=== PATIENT | male | born 2000 | race Caucasian/White ===

== ENCOUNTER 2019-01-01 13:06 | Emergency (ER) | payer OTHER ==
[2019-01-01] MEDS ORDERED: NS 1,000 ML IV ONE (13:26)
[2019-01-01] MEDS ORDERED: ONDANSETRON 4 MG/2 ML VIAL IVP ONE (13:26)
[2019-01-01] MEDS ORDERED: KETOROLAC 30 MG/1 ML SDV IVP ONE ×2 (13:26→16:42)
--- NOTE | 2019-01-01 13:29 | EDPHY ---
HPI/HX/ROS/PE/MDM Narrative: CHIEF COMPLAINT: Vomiting, diarrhea HPI: The patient is a 18-year-old male with no significant past medical history. He returned from [place] in [facility] approximately 5 days ago. 1-2 days after returning, he developed vomiting and diarrhea as well as diffuse abdominal cramping. He does describe some blood in his stool. He denies fever or chills. He denies dysuria. REVIEW OF SYSTEMS: Aside from elements discussed in the HPI, a comprehensive 10-point review of systems was reviewed and is negative. PMH: No significant past medical history. No history of abdominal surgery. SOCIAL HISTORY: Single. Student. PHYSICAL EXAM: General:Patient is alert, in no acute distress. ENT:Eyes are normal to inspection. ENT inspection normal. Neck: Normal inspection. Full range of motion. Respiratory:No respiratory distress. Breath sounds normal bilaterally. Cardiovascular: Regular rate and rhythm. Strong peripheral pulses. Normal cap refill. Abdomen:The abdomen is nontender to palpation. There are no peritoneal signs. There are normal bowel sounds. Back: Normal to inspection. No tenderness to palpation. Skin: Normal color. No rash. Warm and dry. Extremities: Normal appearance. Full range of motion. Neuro: Oriented x3. Normal motor function. Normal sensory function. ED Course: 18:[address] Duke, radiologist. Normal appendix. Evidence of colitis. Plan to administer 1g PO azithromycin. 18:32 Patient tolerated PO challenge. Plan to discharge home in good condition. Follow up and return precautions discussed. He is comfortable with this plan. MDM: This patient presents with signs and symptoms of gastroenteritis, likely caused by food-borne illness from recent trip to [place]. Given his finding of pain in the RLQ, a CT was performed to rule out appendicitis and this is thankfully normal. The patient has been unable to provide a stool sample despite his multiple hour long ED stay. This in itself is reassuring, but does not help us identify the pathogen. I have chosen to treat the patient empirically with 1 g azithromycin. At time of discharge, the patient is tolerating food and fluids by mouth without difficulty and he appears well hydrated. - Data Points Imaging Results: Imaging Impressions Abdomen CT 01/01/19 17:33 Impression: 1. Mild colitis involving the cecum and ascending colon, likely infectious. No perforation, abscess or obstruction. 2. Normal appendix. Findings discussed with Emergency Department physician, Serafin Infante MD at 01/01/2019 18:11. Imaging: Discussed imaging studies w/ windmill mechanic Radiologist Laboratory Results: Laboratory Results 01/01/19 13:29 01/01/19 13:29 01/01/19 01/01/19 13:29 13:29 WBC 11.72 10^3/uL H 10^3/uL (3.80-9.50) RBC 5.53 10^6/uL 10^6/uL (4.40-6.38) Hgb 17.1 g/dL g/dL (13.7-17.5) Hct 48.0 % % (40.0-51.0) MCV 86.8 fL fL (81.5-99.8) MCH 30.9 pg pg (27.9-34.1) MCHC 35.6 g/dL g/dL (32.4-36.7) RDW 11.9 % % (11.5-15.2) Plt Count 366 10^3/uL 10^3/uL (150-400) MPV 9.1 fL fL (8.7-11.7) Neut % (Auto) 65.1 % % (39.3-74.2) Lymph % (Auto) 24.1 % % (15.0-45.0) [place] % (Auto) 9.7 % % (4.5-13.0) Eos % (Auto) 0.3 % L % (0.6-7.6) Baso % (Auto) 0.5 % % (0.3-1.7) Nucleat RBC Rel Count 0.0 % % (0.0-0.2) Absolute Neuts (auto) 7.62 10^3/uL H 10^3/uL (1.70-6.50) Absolute Lymphs (auto) 2.83 10^3/uL 10^3/uL (1.00-3.00) Absolute Monos (auto) 1.14 10^3/uL H 10^3/uL (0.30-0.80) Absolute Eos (auto) 0.03 10^3/uL 10^3/uL (0.03-0.40) Absolute Basos (auto) 0.06 10^3/uL 10^3/uL (0.02-0.10) Absolute Nucleated RBC 0.00 10^3/uL 10^3/uL (0-0.01) Immature Gran % 0.3 % % (0.0-1.1) Immature Gran # 0.04 10^3/uL 10^3/uL (0.00-0.10) Sodium 138 mEq/L mEq/L (135-145) Potassium 4.2 mEq/L mEq/L (3.5-5.2) Chloride 97 mEq/L mEq/L (97-110) Carbon Dioxide 24 mEq/l mEq/l (22-31) Anion Gap 17 mEq/L H mEq/L (6-14) BUN 13 mg/dL mg/dL (7-23) Creatinine 0.7 mg/dL mg/dL (0.7-1.3) Estimated GFR > 60 Glucose 91 mg/dL mg/dL (70-100) Calcium 10.3 mg/dL mg/dL (8.5-10.4) Medications Given: Discontinued Medications Sodium Chloride (Ns) 1,000 mls @ 0 mls/hr IV EDNOW ONE; Wide Open PRN Reason: Protocol Stop: 01/01/19 13:27 Last Admin: 01/01/19 13:28 Dose: 1,000 mls Ketorolac Tromethamine (Toradol) 15 mg IVP EDNOW ONE Stop: 01/01/19 13:27 Last Admin: 01/01/19 13:42 Dose: 15 mg Ketorolac Tromethamine (Toradol) 15 mg IVP EDNOW ONE Stop: 01/01/19 16:43 Last Admin: 01/01/19 16:58 Dose: 15 mg Ondansetron HCl (Zofran) 4 mg IVP EDNOW ONE Stop: 01/01/19 13:27 Last Admin: 01/01/19 13:42 Dose: 4 mg General Time Seen by Provider: 01/01/19 13:20 Initial Vital Signs: Initial Vital Signs Temperature (C) 36.5 C 01/01/19 13:12 Heart Rate 68 01/01/19 13:12 Respiratory Rate 16 01/01/19 13:12 Blood Pressure 150/86 H 01/01/19 13:12 O2 Sat (%) 99 01/01/19 13:12 O2 Delivery Mode Room Air Allergies/Adverse Reactions: No Known Allergies Allergy (Unverified 01/01/19 13:14) Home Medications: Medication Instructions Recorded Ondansetron Odt [Zofran Odt] 4 mg PO Q4PRN PRN #10 tab 01/01/19 Departure - Departure Disposition: Home, Routine, Self-Care Clinical Impression: Colitis Condition: Good Instructions: Colitis (ED) Additional Instructions: Follow-up with your primary doctor within 72 hours. Take Zofran as prescribed as needed for nausea. Return to the Emergency Department for worsening pain, fever, severe vomiting, change in character or severity of pain or other worsening of condition. Referrals: BERNADINE ALMONTE [Other] - As per Instructions Serafin Maxwell MD [Medical Doctor] - As per Instructions Prescriptions: Ondansetron Odt [Zofran Odt] 4 mg PO Q4PRN PRN #10 tab PRN Reason: Nausea
[2019-01-01 13:38] LABS: PLATELET COUNT 366 10^3/uL (150-400)
[2019-01-01] MEDS ORDERED: KETOROLAC 15 MG/1 ML SDV ONE (16:43)
[2019-01-01] MEDS ORDERED: IOPAMIDOL (ISOVUE-300) 100 ML BTL ONE (17:40)
[2019-01-01] MEDS ORDERED: AZITHROMYCIN 250 MG TAB PO ONE (18:28)
[2019-01-01 19:07] VITALS: BP 121/62
== END 2019-01-01 19:11 | disposition home or self-care (01) ==
DX: K52.9 Noninfective gastroenteritis and colitis, unspecified (principal); E86.9 Volume depletion, unspecified
CPT/HCPCS: 96374; J1885; J2405; Q9967